=== PATIENT | female | born 1960 | race Two or more races ===

== ENCOUNTER 2018-06-19 14:42 | Outpatient (CLI) | payer OTHER | END 2018-06-19 14:55 | disposition home or self-care (01) | LOC: MAMO-SONO 14:42 | DX: Z12.31 Encounter for screening mammogram for malignant neoplasm of breast (principal); N60.11 Diffuse cystic mastopathy of right breast; N60.12 Diffuse cystic mastopathy of left breast ==

== ENCOUNTER 2020-12-15 14:02 | Outpatient (CLI) | payer OTHER ==
[~2020-12-15 14:02] MED LIST: AVAPRO150 MG
== END 2020-12-15 14:20 | disposition home or self-care (01) ==
LOC: MAMO-SONO 14:02
PROVIDERS: ATTEND Specialist
DX: N60.11 Diffuse cystic mastopathy of right breast (principal); N60.12 Diffuse cystic mastopathy of left breast

== ENCOUNTER 2023-04-25 14:46 | Outpatient (CLI) | payer OTHER | END 2023-04-25 15:56 | disposition home or self-care (01) | LOC: MAMO-SONO 14:46 | PROVIDERS: ATTEND Family Medicine | DX: N63.20 Unspecified lump in the left breast, unspecified quadrant (principal) ==

== ENCOUNTER 2024-07-28 11:39 | Outpatient (CLI) | payer OTHER | END 2024-07-28 11:46 | disposition home or self-care (01) | LOC: MAMO-SONO 11:39 | DX: N60.11 Diffuse cystic mastopathy of right breast (principal); N60.12 Diffuse cystic mastopathy of left breast; N64.0 Fissure and fistula of nipple; N63.0 Unspecified lump in unspecified breast ==

== ENCOUNTER 2024-08-11 13:07 | Outpatient (CLI) | payer OTHER | END 2024-08-11 13:08 | disposition home or self-care (01) | LOC: NUCLEAR 13:07 | PROVIDERS: ATTEND General Practice | DX: M81.0 Age-related osteoporosis without current pathological fracture (principal) ==

== ENCOUNTER 2025-03-12 12:30 | Inpatient (IN) | payer OTHER ==
[~2025-03-12] VITALS: Ht 157.5 cm; Wt 467.2 kg
[2025-03-12] MEDS ORDERED: AVALIDE 300-121 EACH PO (14:33)
[2025-03-12 14:36] VITALS: BP 131/75
[2025-03-18] MEDS ORDERED: CEFTRIAXONE SODIUM 2,000 MG VIAL ONE (12:23)
[2025-03-18] MEDS ORDERED: METRONIDAZOLE/SODIUM CHLORIDE 500 MG/100 ML PIGGYBACK IV ONE (12:28)
[2025-03-18] MEDS ORDERED: BUPIVACAINE HCL/MPF 0.5% 30ML VIAL ONE (13:01)
[2025-03-18] MEDS ORDERED: POVIDONE-IODINE 118 ML BOTT TOP ONE (13:01)
[2025-03-18] MEDS ORDERED: DIBUCAINE 30 GM TUBE ONE (13:01)
[2025-03-18] MEDS ORDERED: LIDOCAINE HCL 1%/EPINEPHRINE 20ML VIAL IJ ONE (13:02)
[2025-03-18] MEDS ORDERED: HEMOSTATIC MATRIX 1 KIT KIT TOP ONE (13:02)
[2025-03-18] MEDS ORDERED: ENALAPRILAT DIHYDRATE 1.25 MG/ML VIAL IV PRN (15:30)
[2025-03-18] MEDS ORDERED: OxyCODONE HCL 5 MG TABLET (ROXICODONE) PO PRN (18:15)
[2025-03-18] MEDS ORDERED: ONDANSETRON HCL 2 MG/ML VIAL IV PRN (18:15)
[2025-03-18] MEDS ORDERED: RINGERS SOLUTION,LACTATED 1,000 ML IV SCH (18:15)
[2025-03-18] MEDS ORDERED: MORPHINE SULFATE 4 MG/ML CARTRIDGE IV PRN (18:15)
[2025-03-18] MEDS ORDERED: MORPHINE SULFATE 4 MG/ML VIAL IV ONE (18:45)
[2025-03-18 19:02] VITALS: BP 165/87; O2SAT 97
[2025-03-18] MEDS ORDERED: ACETAMINOPHEN 500 MG GEL..CAP PO SCH (20:00)
[2025-03-18 21:00] VITALS: BP 138/80
[2025-03-18] MEDS ORDERED: SIMETHICONE 125 MG CAPSULE PO SCH (21:00)
[2025-03-18] MEDS ORDERED: CELECOXIB 200 MG CAPSULE PO SCH (21:00)
[2025-03-18] MEDS ORDERED: FAMOTIDINE/PF 20 MG/2 ML VIAL IV PUSH SCH (21:00)
[2025-03-19 00:18] VITALS: BP 119/66; O2SAT 100
[2025-03-19] MEDS ORDERED: METOCLOPRAMIDE HCL 5 MG/ML VIAL IV SCH (01:00)
[2025-03-19] MEDS ORDERED: GABAPENTIN 300 MG CAPSULE PO SCH (01:00)
[2025-03-19] MEDS ORDERED: CELECOXIB200 MG PO (08:02)
[2025-03-19] MEDS ORDERED: TRAM1TAB98 PO (08:03)
[2025-03-19] MEDS ORDERED: INTESTINEX680 M1 PO (08:03)
[2025-03-19] MEDS ORDERED: IRBESARTAN 300 MG TABLET PO SCH (09:00)
[2025-03-19] MEDS ORDERED: HYOSCYAMINE SULFATE 0.125 MG TAB.SUBL SL SCH (09:00)
[2025-03-19] MEDS ORDERED: LACTOBACILLUS ACIDOPHILUS 1 CAP CAP PO SCH (09:00)
[2025-03-19] MEDS ORDERED: HYDROCHLOROTHIAZIDE 12.5 MG CAPSULE PO SCH (09:00)
[2025-03-19] MEDS ORDERED: ENOXAPARIN SODIUM 40 MG/0.4 ML SYRINGE SUBCUTANEO SCH (17:00)
[2025-03-20] MEDS ORDERED: ENOXAPARIN SODIUM 40 MG/0.4 ML SYRINGE SUBCUTANEO SCH (09:00)
== END 2025-03-19 09:25 | disposition home or self-care (01) | DRG 748 ==
LOC: O/R 03-18 10:50 → SURH 03-18 12:30 → SURG 03-18 15:28
PROVIDERS: ADMIT Surgery; ATTEND Surgery
PROC: 3E0T3BZ Introduction of Anesthetic Agent into Peripheral Nerves and Plexi, Percutaneous Approach (ICD-10-PCS; 2025-03-18)
PROC: 0JQC0ZZ Repair Pelvic Region Subcutaneous Tissue and Fascia, Open Approach (ICD-10-PCS; principal; 2025-03-18 13:30)
DX: N81.6 Rectocele (principal)

== ENCOUNTER 2025-08-12 13:51 | Outpatient (CLI) | payer OTHER ==
[~2025-08-12 13:51] MED LIST changes: +AVALIDE 300-121 EACH PO; +CELECOXIB200 MG PO; +INTESTINEX680 M1 PO; +TRAM1TAB98 PO
== END 2025-08-12 14:06 | disposition home or self-care (01) ==
LOC: MAMO-SONO 13:51
DX: N64.4 Mastodynia (principal); Z12.39 Encounter for other screening for malignant neoplasm of breast